=== PATIENT | female | born 1985 | race African-American/Black ===

== ENCOUNTER 2016-12-31 23:59 | Emergency (ER) | payer OTHER ==
--- NOTE | ~2016-12-31 | CR63 ---
[facility] A Service of [facility] & [facility] [place] RADIOLOGY TEXT RESULTS PATIENT: ALVARADO CEVALLOS LOCATION: [facility] : [birth year] UNIT #: [id number] AGE: [address]: DALE CHRIS APRN SEX: F ORDER DR: [id number] [facility] [address] [place], [place] [address] [id number] E MR#: [id number] Acc #: [id number] NAME: ALVARADO CEVALLOS : 1985 SEX: F STUDY DATE/TIME: 01/01/2017 1:06 UNIT: [facility] ROOM: STUDY DESCRIPTION: CR Chest 2 View Attending Physician: Dale Chris Aprn Ordering Physician: Ed Mann Giles M.D. Primary Care Physician: [facility] MEDICAL IMAGING REPORT This report is preliminary unless electronic signature is present EXAM Chest x-ray, 01/01/2017 HISTORY 31-year-old female in the ED complaining of 1-day history, cough, congestion, shortness of air and fever. TECHNIQUE AP lateral upright chest series. FINDINGS The lungs are expanded and clear. Heart size and pulmonary vascularity are within normal limits given technique. No visible pulmonary filtrate or pleural effusion. IMPRESSION Negative chest. Dictated by... Joshua Cline M.D. THIS IS AN ELECTRONICALLY VERIFIED REPORT Joshua Cline M.D. at 01/01/2017 5:59 AM JEANIE/marya TD: 01/01/2017 02:52 JOB #: [id number] MEDICAL IMAGING REPORT Page 1 of 1 COPY
[~2016-12-31 23:59] MED LIST: ALLEGRA60 M1 PO; IBUPROFEN PO; NAPROSYN250 M1 PO; PHENERGAN PO; PHENERGAN25 M1 PO; VICODIN 5/500 T1 TAB PO
[2017-01-01 02:15] LABS: URINE SOURCE CLEAN CATCH
[2017-01-01 02:18] LABS: URINE APPEARANCE TURBID; URINE BILIRUBIN NEG (NEG); URINE BLOOD 3+ (NEG); URINE COLOR YELLOW; URINE GLUCOSE NEG (NEG); URINE KETONE 2+ (NEG); URINE LEUKOCYTE ESTERASE 3+ (NEG); URINE NITRATE POS (NEG); URINE PH 5.5 (5-8); URINE PROTEIN 1+ (NEG); URINE SPECIFIC GRAVITY 1.017 (1.003-1.035)
[2017-01-01 02:20] LABS: CULTURE INDICATED? YES; URINE BACTERIA AUWI 4+ (NEGATIVE); URINE SQUAMOUS EPITHELIAL CELL FEW /[HPF]; UWBCS1 AUWI 100-200 (0-5)
== END 2017-01-01 03:43 | disposition home or self-care (01) ==
LOC: CED 23:59
PROVIDERS: Physician Assistant
DX: N39.0 Urinary tract infection, site not specified (principal); F17.210 Nicotine dependence, cigarettes, uncomplicated
CPT/HCPCS: 71020; 81003; 84703; 87086; 87088; 87186; 99283